=== PATIENT | female | born 1985 | race Caucasian/White ===

== ENCOUNTER 2017-05-07 20:44 | Emergency (ER) | payer OTHER ==
[~2017-05-07] VITALS: Ht 154.9 cm; Wt 77.2 kg
[~2017-05-07 20:44] MED LIST: ACET325T51 PO; ALBU8.5H2 INHALATION; AMOX-366 PO; AMOX500C2 PO; BECL8.7A6 INHALATION; ESOM20TA PO; OXYC-407 PO; TRAZ-115 PO
[2017-05-07 20:47] VITALS: BP 117/84; PULSE 80; RESP 16; O2SAT 99
--- NOTE | 2017-05-07 21:49 | ED.REPORT ---
HPI-Headache Date of Service May 07, 2017 ED Provider: Manuel Buchanan MD The patient is a 32 year old female with an extensive medical history including seizure disorder, migraines, hypertension, and recurrent aseptic meningitis who presents to the ED with a headache onset earlier today. The headache was preceded by left arm paresthesias and pain. Associated symptoms include chills and neck pain. The patient is unsure whether or not she has been febrile. She denies other symptoms. The patient has had similar symptoms in the past associated with aseptic meningitis, which she gets approximately once a month, but the arm symptoms are new. Nursing Notes Stated Complaint: LEFT ARM TINGLING, HEADACHE, STIFF NECK, VOMITING Chief Complaint: Headache Nursing Notes Reviewed: Yes Allergies: Coded Allergies: Bumble Bee (Verified Allergy, Severe, SWELLING,VOMITING, 07/04/16) aspirin (Verified Allergy, Severe, 07/04/16) nitrofurantoin (Verified Allergy, Severe, HIVES/NAUSEA (RECEIVED 09/05/05 WITH NO PROBLEMS), 07/04/16) Replaces FURADANTIN GRAFF HIVES/NAUSEA ondansetron (Verified Allergy, Severe, Hives, 07/04/16) diphenhydramine (Verified Allergy, Intermediate, Hives, 07/04/16) cephalexin (Verified Allergy, Mild, Hives, BUT NOT ROCEPHIN (PER 08/25 NOTE ), 07/04/16) ibuprofen (Verified Allergy, Mild, 07/04/16) Cephalosporins (Verified Allergy, Unknown, TOLERATES CEFTRIAXONE, 07/04/16) Pecan (Verified Allergy, Unknown, 07/04/16) carrot (Verified Allergy, Unknown, 07/04/16) grape (Verified Allergy, Unknown, 07/04/16) ondansetron HCl (Verified Allergy, Unknown, 07/04/16) Scheduled Amoxicillin (Amoxicillin) 500 Mg Capsule 1,000 MG PO BID Amoxicillin/Clav K 875-125 mg (Augmentin 875-125 mg) 1 Each Tablet 1 TABLET PO BID Beclomethasone Dipropionate (Qvar) 8.7 Gm Aer.w.adap 1 PUFF INHALATION BID Esomeprazole Magnesium (Nexium 24Hr) 20 Mg Tablet.dr 20 MG PO DAILY Trazodone (Trazodone) 50 Mg Tablet 50 MG PO HS Scheduled PRN Acetaminophen (Acetaminophen) 325 Mg Tablet 650 MG PO Q4H PRN PRN For Pain Albuterol HFA (Proair HFA) 8.5 Gm Hfa.aer.ad 2 PUFFS INHALATION Q4H PRN PRN For Shortness of Breath Oxycodone HCl/Acetaminophen 5-325 (Endocet 5-325) 1 Each Tablet 1-2 TABLET PO Q4H PRN PRN For Pain General Time Seen by MD: 21:45 Chief Complaint Headache Hx Obtained From: Patient Arrived By: Walk-in Sudden in Onset?: No Onset Occurred: 5 - 8 hours ago Symptom Duration: Since onset Location: : Generalized (Head, neck) Quality: Painful Severity: Current: Moderate Severity: Maximum: Moderate Pertinent Negative: Relieved by nothing Related History: Reports: Headache, migraine hx, Hypertension Recent Healthcare: No recent doctor visit Similar Sx Previous: Yes Past Medical History Past Medical History Notes: PCP Dr. Velazquez (re-establishing 02/2016) Pt seen at [facility] (02/2016) Past Medical History Depression GERD Recurrent UTIs Hiatal hernia Migraines Report of aseptic meningitis multiple times-- numerous LPs Recurrent viral meningitis (>30 episodes of aseptic meningitis w/CSF wbc often 1,000+ wbcs, unclear etiology - but all cultures have always been negative for any bacterial etiology. Patient has been seen and evaluatede by ID in [place]. Quesiton of Mollaret's meningitis, a type of recurrent aseptic meningitis. Patient states has previously been on Acyclovir, stated this exacerbated her symptoms. Tested negative for herpes. The past number of years patient has been treated symptomatically and has declined LPs given all LP's have been culture negative. Report of seizure disorder PTSD Optic neuritis MRSA infection Multiple dental caries and abscesses Asthma Reports: Asthma, Hypertension Past Surgical History Surgical History Umbilical hernia repair Tonsillectomy Tubal ligation Reports: Tubal ligation Family History Noncontributory Smoking History Current Every Day Smoker Social History Alcohol Use: Denies alcohol use Drug Use: Denies drug use Other Social History: Good social support, Frequent ED visitor, Local resident Ambulatory Status Independent Review of Systems Review of Systems Note: + Left arm paresthesias FEVER STATUS UNKNOWN Constitutional: Reports: Chills GI: Denies: Diarrhea, Vomiting Musculoskeletal: Reports: Extremity pain (Left arm), Neck pain Neurologic: Reports: Headache Complete sys rev & neg: except as marked. Respiratory: Denies: Non-productive cough, Shortness of breath Physical Exam Initial Vital Signs Vital Signs (First) Date Time Temp Pulse Resp B/P Pulse Ox O2 Delivery O2 Flow Rate FiO2 05/07/17 20:47 36.7 80 16 117/84 99 Room Air Initial VS: Reviewed ENT: Conjunctiva normal, No scleral icterus Skin: Warm, Dry, No cyanosis Psychiatric: Mood/affect normal, Behavior normal, Normal thought content General/Constitutional: Awake, Alert, No acute distress Appears fatigued Head / Eyes: Atraumatic, Normocephalic Neck: Supple, Full range of motion No posterior tenderness Neurologic: Oriented X3, Speech NL, No motor deficits, No sensory deficits Interpretation & Diagnostics CT Head Interpretation CONCLUSION: No acute intracranial abnormality. Report transmitted to the ED by radiologist Nadiya Alfredo M.D. at 05/07/2017 - 10:43:01 PM PDT Study: Head CT no contrast Interpretation / Wet Read by: Interpret - Radiologist Re-Eval/Medical Decision Med Decision/Clinical Course 32-year-old female with a long history of headaches and recurrent aseptic meningitis. She presents now with headache and neck stiffness. Her physical examination shows no neurologic deficits. Her neck is actually supple but uncomfortable. She was given Percocet 2 tablets and Phenergan 25 mg IM with good relief. She was able to tolerate oral fluids. She is being discharged home to continue oral hydration and reevaluate as needed. Source of Hx: Old records Re-Evaluation/Progress : Time of Eval: 00:04 )( Patient Status: Condition improved Re-Evaluation/Progress Note: Patient is nauseous and not feeling much better. Discussed with patient CT results, diagnosis, and plan for medication then discharge when patient is feeling better. Follow-up and return to the ER instructions given. Patient agrees with plan for care and all questions were addressed. Counseled Regarding: Diagnosis, Need for follow-up, When/why to return to ED Discharge & Departure Impression: Primary Impression: Headache Headache type: unspecified Headache chronicity pattern: acute headache Intractability: not intractable Qualified Code: R51 - Headache Disposition: Home Discharge Condition All VS Reviewed: Yes Condition: Improved Patient Instructions: Acute Headache (ED), Dehydration (ED) Additional Instructions: You received Percocet and Phenergan. Continue oral rehydration. CT scan of your head was negative. Return here if you have persistent or worsening symptoms. Referrals: Keshia Velazquez MD (PCP) Jeanneibmarvel Attestation Portions of this note were transcribed by Jelena Jesus. I, Dr. Buchanan, personally performed the history, physical exam, and medical decision-making; I reviewed and confirmed the accuracy of the information in the transcribed note. Signed by: Gustavo Bell, 05/08/2017, 04:45 copies to: Keshia Velazquez MD, Howard L MD May 07, 2017 21:49 JELENA JESUS May 07, 2017 21:57
[2017-05-08] MEDS ORDERED: oxyCODONE-Acetamin 5-325 mg Tablet PO ONE (00:10)
[2017-05-08] MEDS ORDERED: Promethazine 25 mg/mL Inj IM ONE (00:10)
[2017-05-08 03:54] VITALS: BP 96/59; PULSE 83; RESP 14; O2SAT 98
[2017-05-08 04:13] VITALS: BP 96/59; PULSE 83; RESP 14; O2SAT 98
--- NOTE | 2017-05-08 08:26 | DRSVH ---
PROCEDURE: CT BRAIN WITHOUT CONTRAST ([id number]) INDICATIONS: HEADACHE, LEFT ARM TINGLING TECHNIQUE: Noncontrast 4.5 mm thick angled axial sections acquired from the foramen magnum to the ve rtex, with coronal reformats. COMPARISON: [facility], CT, CT FACE W CON, 10/23/2016, 22:32. FINDINGS: Image quality: Excellent. CSF spaces: Basal cisterns are patent. No extra-axial fluid collections. Ventricles are normal in size and shape. Brain: No midline shift. No intracranial masses or hemorrhage. Petersen-white matter interface is norm al. Skull and face: Calvarium and visualized facial bones are intact, without suspicious lesions. Sinuses: Visualized sinuses and mastoids are clear. IMPRESSION: 1. No CT evidence of acute intracranial pathology. 2. There are no discrepancies with the pulmonary report. Dictated by: Juancarlos Saenz M.D. on 05/08/2017 at 6:46 Transcribed by: SAUNDRA on 05/08/2017 at 11:26 Approved by: Juancarlos Saenz M.D. on 05/08/2017 at 8:44
== END 2017-05-08 04:13 | disposition home or self-care (01) ==
LOC: SED 20:44
DX: R51 Headache (principal); M54.2 Cervicalgia; I10 Essential (primary) hypertension; K21.9 Gastro-esophageal reflux disease without esophagitis; F32.9 Major depressive disorder, single episode, unspecified; G43.909 Migraine, unspecified, not intractable, without status migrainosus; J45.909 Unspecified asthma, uncomplicated; F17.200 Nicotine dependence, unspecified, uncomplicated; Z88.1 Allergy status to other antibiotic agents; Z88.8 Allergy status to other drugs, medicaments and biological substances; Z91.030 Bee allergy status; Z91.018 Allergy to other foods
CPT/HCPCS: 70450; 96372; 99284; J2550

== ENCOUNTER 2017-05-14 20:46 | Emergency (ER) | payer OTHER ==
[~2017-05-14] VITALS: Ht 152.4 cm; Wt 80.0 kg
[2017-05-14 20:48] VITALS: BP 119/79; PULSE 78; RESP 17; O2SAT 100
--- NOTE | 2017-05-14 21:46 | ED.REPORT ---
HPI-Abd Pain F Under 39 Date of Service May 14, 2017 ED Provider: Juancarlos Shields Patient is a 32 year old female with a large self reported medical history and frequent ED visits who presents to the ED complaining of lower abdominal pain onset an hour ago. Associated symptoms include bilateral lower back pain onset this morning. She denies dysuria, diarrhea, melena, hematochezia, vaginal bleeding, vomiting, fever, or any other symptoms. She has not had a BM in a few days but reports she is irregular at baseline. She was seen in the department 7 days ago for a headache. Nursing Notes Stated Complaint: LOWER BACK AND STOMACH PAIN Chief Complaint: Female Abdominal Pain Nursing Notes Reviewed: Yes Allergies: Coded Allergies: Bumble Bee (Verified Allergy, Severe, SWELLING,VOMITING, 07/04/16) aspirin (Verified Allergy, Severe, 07/04/16) nitrofurantoin (Verified Allergy, Severe, HIVES/NAUSEA (RECEIVED 09/05/05 WITH NO PROBLEMS), 07/04/16) Replaces FURADANTIN GRAFF HIVES/NAUSEA ondansetron (Verified Allergy, Severe, Hives, 07/04/16) diphenhydramine (Verified Allergy, Intermediate, Hives, 07/04/16) cephalexin (Verified Allergy, Mild, Hives, BUT NOT ROCEPHIN (PER 08/25 NOTE ), 07/04/16) ibuprofen (Verified Allergy, Mild, 07/04/16) Cephalosporins (Verified Allergy, Unknown, TOLERATES CEFTRIAXONE, 07/04/16) Pecan (Verified Allergy, Unknown, 07/04/16) carrot (Verified Allergy, Unknown, 07/04/16) grape (Verified Allergy, Unknown, 07/04/16) ondansetron HCl (Verified Allergy, Unknown, 07/04/16) Scheduled Amoxicillin (Amoxicillin) 500 Mg Capsule 1,000 MG PO BID Amoxicillin/Clav K 875-125 mg (Augmentin 875-125 mg) 1 Each Tablet 1 TABLET PO BID Beclomethasone Dipropionate (Qvar) 8.7 Gm Aer.w.adap 1 PUFF INHALATION BID Dicyclomine (Bentyl) 10 Mg Capsule 10 MG PO QID Esomeprazole Magnesium (Nexium 24Hr) 20 Mg Tablet.dr 20 MG PO DAILY Trazodone (Trazodone) 50 Mg Tablet 50 MG PO HS Scheduled PRN Acetaminophen (Acetaminophen) 325 Mg Tablet 650 MG PO Q4H PRN PRN For Pain Albuterol HFA (Proair HFA) 8.5 Gm Hfa.aer.ad 2 PUFFS INHALATION Q4H PRN PRN For Shortness of Breath Docusate Sodium (Colace) 100 Mg Capsule 100 MG PO BID PRN PRN For Constipation Oxycodone HCl/Acetaminophen 5-325 (Endocet 5-325) 1 Each Tablet 1-2 TABLET PO Q4H PRN PRN For Pain General Time Seen by MD: 21:45 Chief Complaint Abdominal pain Hx Obtained From: Patient Arrived By: Walk-in Sudden in Onset?: Yes Onset Occurred: 1 - 4 hours ago Symptom Duration: Since onset Location: : Abdomen lower Quality: Painful Severity: Current: Mild Severity: Maximum: Mild Associated with: Reports: Back pain Pertinent Negative: Pt denies other symptoms Past Medical History Past Medical History Notes: PCP Dr. Velazquez (re-establishing 02/2016) Pt seen at [facility] (02/2016) Past Medical History Depression GERD Recurrent UTIs Hiatal hernia Migraines Report of aseptic meningitis multiple times-- numerous LPs Recurrent viral meningitis (>30 episodes of aseptic meningitis w/CSF wbc often 1,000+ wbcs, unclear etiology - but all cultures have always been negative for any bacterial etiology. Patient has been seen and evaluatede by ID in [place]. Quesiton of Mollaret's meningitis, a type of recurrent aseptic meningitis. Patient states has previously been on Acyclovir, stated this exacerbated her symptoms. Tested negative for herpes. The past number of years patient has been treated symptomatically and has declined LPs given all LP's have been culture negative. Report of seizure disorder PTSD Optic neuritis MRSA infection Multiple dental caries and abscesses Asthma Reports: Hypertension Past Surgical History Umbilical hernia repair Tonsillectomy Tubal ligation Reports: Tubal ligation Family History Noncontributory Smoking History Current Every Day Smoker Social History Alcohol Use: Denies alcohol use Drug Use: THC Other Social History: Good social support, Frequent ED visitor, Local resident Ambulatory Status Independent Review of Systems Constitutional: Denies: Fever GI: Reports: Abdominal pain, Denies: Diarrhea, Hematochezia, Melena, Vomiting Female: Denies: Dysuria, Vaginal bleeding - abnl Musculoskeletal: Reports: Back pain Complete sys rev & neg: except as marked. Physical Exam Initial Vital Signs Vital Signs (First) Date Time Temp Pulse Resp B/P Pulse Ox O2 Delivery O2 Flow Rate FiO2 05/14/17 20:48 36.8 78 17 119/79 100 Room Air Initial VS: Reviewed, Vital signs normal Head / Eyes: Atraumatic, Normocephalic Neck: Full range of motion Skin: Warm, Dry Neurologic: Alert, Oriented, Nonfocal Psychiatric: Mood/affect normal, Behavior normal, Normal thought content General/Constitutional: Awake, Alert, Well developed Respiratory / Chest: No respiratory distress Cardiovascular: Heart rate NL, Peripheral circulation NL Abdomen: Soft Mildly tender in lower quadrants bilaterally Back: Atraumatic R CVA tenderness Interpretation & Diagnostics Lab Results Interpretation Result Diagram: 05/14/17213905/14/172139 Test 05/14/17 21:40 05/14/17 22:50 White Blood Count 8.0th/mm3 (3.8-10.1) Red Blood Count 3.69mil/mm3 (3.90-5.20) Hemoglobin 9.5g/dL (12.0-15.6) Hematocrit 30.5% (35.0-46.0) Mean Corpuscular Volume 82.7fL (81-100) Mean Corpuscular Hemoglobin 25.7pg (27.0-35.0) Mean Corpuscular Hemoglobin Concent 31.1% (32.0-37.0) Red Cell Distribution Width 17.4% (12.3-15.4) Platelet Count 286bil/L (150-400) Neutrophils (%) (Auto) 40.1% (40-74) Lymphocytes (%) (Auto) 49.9% (14-46) Monocytes (%) (Auto) 7.4% (4-12) Eosinophils (%) (Auto) 1.8% (0-5) Basophils (%) (Auto) 0.5% (0-3) Sodium Level 136mEq/L (134-144) Potassium Level 4.4mEq/L (3.5-5.2) Chloride Level 102mEq/L (97-108) Carbon Dioxide Level 20mmol/L (18-29) Blood Urea Nitrogen 10mg/dL (6-20) Creatinine 0.97mg/dL (0.57-1.00) Estimat Glomerular Filtration Rate 95mL/min (>59) Glucose Level 92mg/dL (60-99) Calcium Level 9.2mg/dL (8.5-10.1) Magnesium Level 2.0mg/dL (1.6-2.6) Total Bilirubin 0.2mg/dL (0.0-1.2) Aspartate Amino Transf (AST/SGOT) 16U/L (0-50) Alanine Aminotransferase (ALT/SGPT) 12U/L (0-32) Alkaline Phosphatase 74U/L (25-150) Total Protein 7.1g/dL (6.4-8.4) Albumin 4.0g/dL (3.4-5.0) Lipase 27U/L (13-60) Hold Hernandez Top Tube Received (Received) Urine Color Yellow (YELLOW) Urine Appearance Clear (CLEAR,HAZY) Urine pH 6.5 (5.0-8.0) Urine Specific [place] 1.010 (1.003-1.035) Urine Protein Negativemg/dL (NEG,TRACE) Urine Glucose (UA) Negativemg/dL (NEGATIVE) Urine Ketones Negativemg/dL (NEGATIVE) Urine Occult Blood Negative (NEGATIVE) Urine Nitrite Negative (NEGATIVE) Urine Bilirubin Negative (NEGATIVE) Urine Urobilinogen Normalmg/dL (NORMAL) Urine Leukocyte Esterase Negative (NEGATIVE) Urine RBC 0-2/hpf (0-2) Urine WBC 0-5/hpf (0-5) Urine Epithelial Cells Moderate/hpf (NONE-MOD) Urine Crystals None seen (NONE SEEN) Urine Bacteria Few/hpf (NONE-FEW) Urine Hyaline Casts None/lpf (NONE) Urine Granular Casts None seen (NONE SEEN) Urine Waxy Casts None seen (NONE SEEN) Urine Red Blood Cell Casts None seen (NONE SEEN) Urine White Blood Cell Casts None seen (NONE SEEN) Urine Mucus None seen (None Seen) Urine Trichomonas None seen (NONE SEEN) Urine Yeast None (NONE SEEN) Urinalysis Comment None Urine Culture Reflexed Not indicated Hold Urine Received (Received) CT Abd / Pelvis Interpretation CONCLUSION: Hiatal hernia. No acute intra-abdominal abnormality. Jacob Steven M.D. Study type: Abdominal CT IV contrast Interpretation / Wet Read by: Interpret - Radiologist Re-Eval/Medical Decision Med Decision/Clinical Course Med Decision/Clinical Course: 32-year-old female frequent visitor to the emergency department with recurrent meningitis, presents with lower abdominal pain and no bowel movement for several days. She has intermittent constipation at baseline. Exam is basically benign and lab is likewise reassuring. CT scan shows only abundant stool and no other significant findings. Home with milk of magnesia when necessary, daily Colace, and increase fiber in diet advised. Follow up with PCP. Bentyl provided for cramp relief. She is given a single dose of morphine here with a significant hive response, which is not been noted in the past. She is given Vistaril and Pepcid and a single dose of Decadron with improvement. Discharged now in stable condition with addition of morphine to her allergy list. Re-Evaluation/Progress : Time of Eval: 02:15 )( Re-Eval Abdomen: Soft Re-Evaluation/Progress Note: Discussed imaging results and plan for discharge. Patient understands and agrees with plan. All questions addressed at this time. Counseled Regarding: Diagnosis, Lab results, Need for follow-up, When/why to return to ED Discharge & Departure Shift Change Sign-Out Response to Therapy: Improved Primary Impression: Abdominal Pain Generalized Disposition: Home Discharge Condition All VS Reviewed: Yes Condition: Stable Additional Instructions: Increase the fiber in your diet. Follow-up with your doctor in the office. Return if any immediate issues.. Colace twice daily. Begin Bentyl up to four times daily if needed for cramps. Referrals: Keshia Velazquez MD (PCP) Scribe Attestation Portions of this note were transcribed by Hemalatha Dodd. I, Dr. Shields personally performed the history, physical exam and medical decision-making; I reviewed and confirmed the accuracy of the information in the transcribed note. Signed by: Hemalatha Dodd 05/15/2017, 1416 copies to: Keshia Velazquez MD, Christopher W MD May 14, 2017 21:46 HEMALATHA DODD May 14, 2017 21:58
[2017-05-14 21:47] LABS: BASOPHILS % (AUTO) 0.5 % (0-3); EOSINOPHILS % (AUTO) 1.8 % (0-5); MONOCYTES % (AUTO) 7.4 % (4-12); Mean Corpuscular Hemoglobin 25.7 pg (27.0-35.0); Mean Corpuscular Volume 82.7 fL (81-100); NEUTROPHILS % (AUTO) 40.1 % (40-74); Platelet Count 286 bil/L (150-400)
[2017-05-14] MEDS ORDERED: 0.9% Sodium Chloride 1,000 ML IV ONE (22:00)
[2017-05-14] MEDS ORDERED: Dexamethasone 20 mg/2 mL Oral Solution PO ONE (23:10)
[2017-05-14] MEDS ORDERED: hydrOXYzine Inj 50 MG/1 mL SDV IM ONE (23:10)
[2017-05-14] MEDS ORDERED: Famotidine Inj 20 MG in IV Premix 1 EACH IV ONE (23:10)
[2017-05-14 23:39] VITALS: BP 105/63; PULSE 72; O2SAT 96
[2017-05-15 00:16] LABS: APPEARANCE,URINE CLEAR (CLEAR,HAZY); COLOR,URINE YELLOW (YELLOW); OCCULT BLOOD,URINE NEGATIVE (NEGATIVE); PH,URINE 6.5 (5.0-8.0); UROBILINOGEN,URINE NORMAL (NORMAL)
[2017-05-15 02:03] VITALS: BP 110/66; PULSE 70; RESP 16; O2SAT 97
[2017-05-15] MEDS ORDERED: Magnesium Hydroxide 10 mL Oral Concentration PO ONE (02:10)
[2017-05-15] MEDS ORDERED: DICY10CA56 PO (02:14)
[2017-05-15] MEDS ORDERED: DOCU-41 PO (02:14)
--- NOTE | 2017-05-15 10:09 | DRSVH ---
PROCEDURE: CT ABDOMEN AND PELVIS WITH CONTRAST ([id number]) INDICATIONS: lower abdo pain TECHNIQUE: After the administration of intravenous contrast, 5 mm thick sections acquired from the diaphragm to the symphysis. 5 mm coronal and sagittal reformats were acquired. For radiation dose reduction, the following was used: automated exposure control, adjustment of mA and/or kV according to patient siz e. COMPARISON: None. FINDINGS: Image quality: Excellent. ABDOMEN: Lung bases: Lung bases are clear. Heart size is normal. Solid organs: Liver and spleen are normal in size and enhancement. Gallbladder is within normal [place]ell its. Biliary system is non dilated. Pancreas enhances normally. No adrenal nodules. Kidneys demon strate normal size and enhancement, without hydronephrosis. Peritoneum and bowel: Moderate size hiatal hernia noted. Bowel loops demonstrate normal wall thickne ss and caliber. No free fluid or air. Appendix is normal. Nodes and vessels: No retroperitoneal or mesenteric adenopathy by size criteria. Aorta and inferior vena cava are normal in size. Miscellaneous: No ventral hernias. PELVIS: Genitourinary: Bladder wall thickness is normal. Small bilateral adnexal cysts noted. Miscellaneous: No inguinal hernias or adenopathy. Bones: No suspicious bony lesions. No vertebral body compression fractures. IMPRESSION: 1. No acute disease process. 2. No free fluid or free air. 3. No dilated loops of bowel. 4. The appendix is normal. Dictated by: Carol Davis MD, PhD on 05/15/2017 at 10:04 Approved by: Carol Davis MD, PhD on 05/15/2017 at 10:08
== END 2017-05-15 02:27 | disposition home or self-care (01) ==
LOC: SED 20:46
DX: R10.84 Generalized abdominal pain (principal); F32.9 Major depressive disorder, single episode, unspecified; K21.9 Gastro-esophageal reflux disease without esophagitis; F43.10 Post-traumatic stress disorder, unspecified; J45.909 Unspecified asthma, uncomplicated; I10 Essential (primary) hypertension; F17.200 Nicotine dependence, unspecified, uncomplicated; Z91.030 Bee allergy status; Z86.14 Personal history of Methicillin resistant Staphylococcus aureus infection; Z87.440 Personal history of urinary (tract) infections; Z88.8 Allergy status to other drugs, medicaments and biological substances; Z88.6 Allergy status to analgesic agent
CPT/HCPCS: 36415; 74177; 80053; 81000; 83690; 83735; 85025; 96372; 96374; 96375; 99285; J2270; J3410; J3490; J7030; Q9967